=== PATIENT | male | born 1960 | race Caucasian/White ===

== ENCOUNTER 2021-07-08 07:27 | Day surgery (SDC) | payer OTHER ==
[2021-07-03 13:59] VITALS: BMI 36.1
[2021-07-08] MEDS ORDERED: PROPOFOL 20 ML ONE ×2 (09:13)
[2021-07-08 10:27] VITALS: TEMP 97.3
[2021-07-08 10:29] VITALS: BP 131/80; PULSE 96
== END 2021-07-08 10:30 | disposition home or self-care (01) ==
LOC: FASU-ENDO 07:27
PROVIDERS: ATTEND Internal Medicine Gastroenterology
PROC: 0DB98ZX Excision of Duodenum, Via Natural or Artificial Opening Endoscopic, Diagnostic (ICD-10-PCS; 2021-07-08)
PROC: 0DB68ZX Excision of Stomach, Via Natural or Artificial Opening Endoscopic, Diagnostic (ICD-10-PCS; 2021-07-08)
PROC: 0DJD8ZZ Inspection of Lower Intestinal Tract, Via Natural or Artificial Opening Endoscopic (ICD-10-PCS; principal; 2021-07-08 09:22)
DX: Z12.11 Encounter for screening for malignant neoplasm of colon (principal); K57.30 Diverticulosis of large intestine without perforation or abscess without bleeding; K29.50 Unspecified chronic gastritis without bleeding; K29.80 Duodenitis without bleeding; R12 Heartburn
CPT/HCPCS: 43239; G0121; 88305-TC; 88342-TC